=== PATIENT | female | born 1985 | race Caucasian/White ===

== ENCOUNTER 2019-02-11 22:33 | Inpatient (IN) ==
--- NOTE | 2019-02-11 23:11 | Obstetrical Progress Note ---
Date of Service 35 weeks gestational age patient is currently being assessed for UTI was seen in the office today and how was reported increased pain and presented to the hosp [facility] she is having some uterine irritability states her fetus is active there is no leakage of fluid or bleeding she describes more of a generalized abdominal discomfort February 11, 2019 Assessment & Plan (1) Abdominal pain in , antepartum: We will observe the patient for contractions push hydration cervix is not dilating now but he does have a past history of labors we will watch her (2) Abdominal pain in , antepartum: Physical Exam Physical Exam: heart rate tracing is reactive she is having occasional contractions cervix is closed 50% Results & Data Vital Signs (Past 12 Hours) Vital Signs Temp Pulse Resp BP 02/11/19 23:04 80 105/60 02/11/19 22:38 36.4 C L 96 H 18 98/55 L
[2019-02-11] MEDS ORDERED: LACTATED RINGER'S 1,000 ML IV ONE (23:12)
[2019-02-12] MEDS ORDERED: CEFAZOLIN 1000MG 1,000 MG/7.5 ML SYR IV SCH
[2019-02-12 00:19] LABS: Appearance Urine Turbid (Clear); Bacteria Urine Automated 2+ (Negative); Bilirubin Urine Negative (Negative); Blood Urine 3+ (Negative); Color Urine Yellow; Epithelial Cell Urine Auto >30 /lpf (0-5); Glucose Urine UA Negative (Negative); Ketones Urine Negative (Negative); Leukocyte Esterase Urine 3+ (Negative); Nitrite Urine Positive (Negative); Protein Urine 3+ (Negative); Urobilinogen Urine Negative (Negative); WBC Urine Automated >30 /hpf (0-5); pH Urine 6.5 (4.5-7.5)
[2019-02-12] MEDS ORDERED: BUTORPHANOL TARTRATE 2 MG/ML VIAL IV PRN (00:23)
[2019-02-12] MEDS: LACTATED RINGER'S 1,000 ML IV SCH ×3 (00:31→12:58)
[2019-02-12] MEDS ORDERED: CEFAZOLIN 1000MG 1,000 MG/7.5 ML SYR IV PRN (00:44)
[2019-02-12] MEDS ORDERED: OXYTOCIN 30 UNITS/500 ML BAG IV PRN (00:44)
[2019-02-12] MEDS ORDERED: LACTATED RINGER'S 1,000 ML IV PRN (00:44)
--- NOTE | 2019-02-12 00:50 | History & Physical Report ---
Date of Service February 12, 2019 Patient had been monitored with a closed cervix for discomfort the pains have increased check she is now 4 cm and 90% think she is entering into labor. We did not have a group B strep status but she has been started on Ancef due to a possible urinary tract infection her is complicated by the fact she is been on her just on injections for prior at 32 weeks Assessment & Plan (1) labor: Admission I have offered the patient epidural we will continue Ancef 5 increase the dose for GBS prophylactics pediatrics has been called and they are aware (2) labor: History of Present Illness Primary Care Provider: NO PCP Allergies Allergy/AdvReac Type Severity Reaction Status Date / Time No Known Drug Allergies Allergy Verified 02/11/19 15:26 Home Medications Home Medications Medication Instructions Recorded Confirmed Type buprenorphine HCl 8 mg SUBLINGUAL DAILY 02/11/19 02/11/19 History hydroxyprogest(PF)(preg presv) 275 mg SUBCUT WK 02/11/19 02/11/19 History [[place] (PF)] vit no.[id number] 1 tab PO DAILY 02/11/19 02/11/19 History [ Vitamin] Patient History Surgical History History of appendectomy Social History marital status: Single Feels Safe at Home: Yes Safety Concerns: Feels Safe At This Time Smoking Status: Current every day smoker Tobacco Type: cigarettes Cigarettes Per Day: 20 Hx Alcohol Use: No Hx Substance Use: No Physical Exam Constitutional: WD/WN, vitals as above Genitourinary: Manual OB Exam: + cervical dilation 4 cm Results & Data Vital Signs (Past 12 Hours) Vital Signs Temp Pulse Resp BP 02/11/19 23:04 36.9 C 80 18 105/60 02/11/19 22:38 36.4 C L 96 H 18 98/55 L
--- NOTE | 2019-02-12 00:52 | Obstetrical Progress Note ---
Date of Service note patient also on Subutex February 12, 2019 Results & Data Vital Signs (Past 12 Hours) Vital Signs Temp Pulse Resp BP 02/11/19 23:04 36.9 C 80 18 105/60 02/11/19 22:38 36.4 C L 96 H 18 98/55 L
[2019-02-12] MEDS ORDERED: CEFAZOLIN 1000MG 1,000 MG/7.5 ML SYR IV ONE (01:00)
[2019-02-12 01:09] LABS: Hematocrit (blood only) 34.2 % (37-47); Hemoglobin 11.5 g/dL (12.0-16.0); Mean Corpuscular Volume 88.1 fL (80-100); Mean Platelet Volume 11.3 fL (7.4-10.4); Platelet Count 412 K/uL (130-400); RDW Standard Deviation 44.8 fL (36.4-46.3); Red Blood Count 3.88 M/uL (4.2-5.4); White Blood Count 18.36 K/uL (4.8-10.8)
[2019-02-12 01:11] LABS: Mean Corpuscular Hgb Conc 33.6 g/dL (32-36)
--- NOTE | 2019-02-12 01:20 | Anesthesiology Consultation ---
Date of Service February 12, 2019 Assessment & Plan (1) Encounter for pre-operative examination: Chart Review Chart Review: Patient NOT seen in Pre Admission Testing and Acceptable Risk for Labor Epidural Consults Requested none ASA ASA3 Proposed Anesthesia Anesthesia Type: Labor Epidural Risk / Benefits Reviewed With: PT / POA / Parent / Guardian, Accepts Plan and Informed Consent Obtained History Height/Weight Height: 5 ft 5.5 in Weight: 65.317 kg Allergies Allergy/AdvReac Type Severity Reaction Status Date / Time No Known Drug Allergies Allergy Verified 02/11/19 15:26 Medications Home Medications Medication Instructions Recorded Confirmed Last Taken buprenorphine HCl 8 mg SUBLINGUAL DAILY 02/11/19 02/11/19 02/11/19 hydroxyprogest(PF)(preg presv) 275 mg SUBCUT WK 02/11/19 02/11/19 02/09/19 [[place] (PF)] vit no.[id number] 1 tab PO DAILY 02/11/19 02/11/19 02/11/19 [ Vitamin] Active Medications Generic Name Dose Route Start Last Admin Trade Name Rowdyq PRN Reason Stop Dose Admin Lactated Ringer's 1,000 mls @ 125 mls/hr 02/11/19 23:15 02/12/19 01:37 Lr IV 03/13/19 23:14 999 mls/hr .Q8H SUSIE Titration NPO Date Last Intake of Fluids: 02/12/19 Time Last Intake of Fluids: 01:16 Date Last Intake of Solids: 02/11/19 Time Last Intake of Solids: 16:00 Exercise / Class Metabolic Activity II 4-5 Yardwork/Stairs/Walk up hill Past Surgical History Surgical History History of appendectomy Past Anesthesia History No Hx of Anesthesia Complications History of PONV No Hx of PONV and No Hx of Motion Sickness Social History Smoking Status: Current every day smoker tobacco type: cigarettes Smoking cigarettes per day: 20 Hx Alcohol Use: No Hx Substance Use: No Substance Use Type Other:: subutex 8mg PO daily Review of Systems Patient denies history of abnormal bleeding or bleeding disorder. Patient denies active use of anticoagulants other than low dose aspirin. Patient denies numbness, tingling or weakness in lower extremities. Patient denies active symptoms of GERD. Physical Exam Vital Signs Last Vital Signs Temp 36.9 C 02/11/19 23:04 Pulse 100 H 02/12/19 01:11 Resp 18 02/11/19 23:04 BP 98/76 L 02/12/19 01:11 Constitutional not obese (Gravid uterus) ENMT Mouth: + dentures and + edentulous; no TMJ abnormality and oral opening not small Thyromental Distance: > or= 3.5 Finger Breadths Mallampati Class: II Neck normal visual inspection; neck extension not limited Respiratory normal respiratory effort Auscultation: lungs clear to auscultation bilaterally Cardiovascular Rate/Rhythm: regular rate and regular rhythm Heart Sounds: no murmur Neurologic moves all extremities Motor/Sensory: no sensory deficit Psychiatric Orientation: alert and oriented x 3 Testing Laboratory Results 02/12/19 01:02 Urine Color Yellow 02/11/19 23:15 Urine Appearance Turbid (Clear) A 02/11/19 23:15 Urine pH 6.5 (4.5-7.5) 02/11/19 23:15 Ur Specific [place] 1.010 (1.000-1.030) 02/11/19 23:15 Urine Protein 3+ (Negative) H 02/11/19 23:15 Urine Glucose (UA) Negative (Negative) 02/11/19 23:15 Urine Ketones Negative (Negative) 02/11/19 23:15 Urine Nitrite Positive (Negative) A 02/11/19 23:15 Ur Leukocyte Esterase 3+ (Negative) H 02/11/19 23:15 Urine WBC (Auto) >30 /hpf (0-5) H 02/11/19 23:15 Urine RBC (Auto) 10-30 /hpf (0-4) H 02/11/19 23:15 U Hyaline Cast (Auto) 1-5 /lpf (0-5) 02/11/19 23:15 U Epithel Cells (Auto) >30 /lpf (0-5) H 02/11/19 23:15 Urine Bacteria (Auto) 2+ (Negative) H 02/11/19 23:15
[2019-02-12] MEDS ORDERED: ePHEDrine sulfate 50 MG/ML AMP ONE (01:29)
[2019-02-12] MEDS ORDERED: BUPIVACAINE 0.25% 30 ML VIAL ONE (01:29)
[2019-02-12] MEDS ORDERED: fentaNYL citrate 100 MCG/2 ML VIAL ONE (01:30)
[2019-02-12] MEDS ORDERED: fentaNYL 2MCG/ML ROPIV 1.25MG/ML 100 ML BAG EPI ONE (01:30)
[2019-02-12] MEDS ORDERED: ONDANSETRON INJ 2 MG/ML 2 ML VIAL IV PRN (02:09)
[2019-02-12] MEDS ORDERED: fentaNYL 2MCG/ML ROPIV 1.25MG/ML 100 ML BAG EPI PRN (02:09)
[2019-02-12] MEDS ORDERED: ePHEDrine sulfate 50 MG/ML AMP IV PRN (02:09)
[2019-02-12] MEDS ORDERED: NALOXONE HCL 1 MG in SODIUM CHLORIDE 0.9% 1000ML 1,000 ML IV PRN (02:09)
[2019-02-12] MEDS ORDERED: DiphenhydrAMINE HCL 50 MG/ML VIAL IV PRN (02:09)
[2019-02-12] MEDS ORDERED: NALBUPHINE HCL INJ 10 MG/ML AMP IV PRN (02:09)
[2019-02-12] MEDS ORDERED: NALOXONE HCL 0.4 MG/1 ML VIAL/CARP IV PRN (02:09)
--- NOTE | 2019-02-12 07:56 | Obstetrical Progress Note ---
Date of Service patient requested epidural and now sleeping. cervix has changed to 4-5 cm. contractions irregular February 12, 2019 Assessment & Plan (1) labor: continue to follow. she has made a change. i would not augment labor at this stage as . will order subutex Physical Exam Genitourinary: Manual OB Exam: + cervical dilation 4 cm Results & Data Vital Signs (Past 12 Hours) Vital Signs Temp Pulse Resp BP Pulse Ox 02/12/19 07:49 84 98 02/12/19 07:44 85 96 02/12/19 07:39 87 97 02/12/19 07:38 79 90/54 L 02/12/19 07:34 85 96 02/12/19 07:29 85 96 02/12/19 07:24 86 91/50 L 96 02/12/19 07:19 83 97 02/12/19 07:15 37.0 C 20 02/12/19 07:14 102 H 98 02/12/19 07:09 83 94/55 L 96 02/12/19 07:04 82 96 02/12/19 06:59 87 97 02/12/19 06:55 81 90/50 L 02/12/19 06:54 86 97 02/12/19 06:49 87 96 02/12/19 06:44 85 97 02/12/19 06:39 99 H 96/54 L 98 02/12/19 06:34 113 H 98 02/12/19 06:29 83 96 02/12/19 06:24 96 H 88/50 L 97 02/12/19 06:19 87 97 02/12/19 06:14 88 97 02/12/19 06:09 88 90/52 L 97 02/12/19 06:04 84 97 02/12/19 05:59 84 97 02/12/19 05:54 84 89/53 L 97 02/12/19 05:49 81 97 02/12/19 05:44 103 H 98 02/12/19 05:39 89 92/55 L 97 02/12/19 05:34 89 96 02/12/19 05:29 89 97 02/12/19 05:24 88 98 02/12/19 05:23 85 95/55 L 02/12/19 05:19 87 98 02/12/19 05:14 86 97 02/12/19 05:11 93 H 101/55 L 02/12/19 05:10 37.1 C 18 02/12/19 05:09 91 H 107/58 L 98 02/12/19 05:04 78 98 02/12/19 04:59 93 H 98 02/12/19 04:54 82 97/52 L 97 02/12/19 04:49 81 97 02/12/19 04:44 82 97 02/12/19 04:39 79 94/53 L 97 02/12/19 04:34 81 97 02/12/19 04:29 82 97 02/12/19 04:24 97 H 92/53 L 99 02/12/19 04:19 84 97 02/12/19 04:14 88 96 02/12/19 04:10 88 16 88/53 L 02/12/19 04:09 87 97 02/12/19 04:04 90 96 02/12/19 03:59 88 96 02/12/19 03:54 89 96 02/12/19 03:53 86 92/53 L 02/12/19 03:49 93 H 95 02/12/19 03:44 92 H 96 02/12/19 03:39 90 94/50 L 96 02/12/19 03:34 87 96 02/12/19 03:32 82 97/52 L 02/12/19 03:29 87 97 02/12/19 03:24 83 83/49 L 97 02/12/19 03:19 85 97 02/12/19 03:14 88 97 02/12/19 03:09 84 86/48 L 97 02/12/19 03:04 87 97 02/12/19 02:59 87 97 02/12/19 02:54 86 97 02/12/19 02:53 81 87/51 L 02/12/19 02:49 87 92/51 L 97 02/12/19 02:47 91 H 89/52 L 02/12/19 02:45 93 H 90/51 L 02/12/19 02:44 102 H 98 02/12/19 02:43 93 H 87/50 L 02/12/19 02:41 96 H 88/51 L 02/12/19 02:39 93 H 92/53 L 97 02/12/19 02:37 91 H 91/53 L 02/12/19 02:35 96 H 89/53 L 02/12/19 02:34 95 H 96 02/12/19 02:33 96 H 90/55 L 02/12/19 02:31 90 91/52 L 02/12/19 02:29 90 89/51 L 97 02/12/19 02:27 96 H 99/54 L 02/12/19 02:25 99 H 100/54 L 02/12/19 02:24 90 97 02/12/19 02:23 93 H 92/50 L 02/12/19 02:21 96 H 92/53 L 02/12/19 02:19 103 H 98/55 L 98 02/12/19 02:17 90 98/53 L 02/12/19 02:15 98 H 97/55 L 02/12/19 02:14 98 H 98 02/12/19 02:13 104 H 94/52 L 02/12/19 02:11 90 97/55 L 02/12/19 02:09 98 H 97/54 L 99 02/12/19 02:07 90 96/50 L 02/12/19 02:05 99 H 96/51 L 02/12/19 02:04 94 H 99 02/12/19 02:03 96 H 103/52 L 02/12/19 02:01 90 18 101/52 L 02/12/19 01:59 98 H 95/48 L 99 02/12/19 01:57 90 100/59 L 02/12/19 01:55 89 94/50 L 02/12/19 01:54 83 100 02/12/19 01:53 78 104/55 L 02/12/19 01:50 85 87/45 L 02/12/19 01:49 90 85/47 L 98 02/12/19 01:48 83 102/44 L 02/12/19 01:45 103 H 101/55 L 02/12/19 01:44 94 H 97 02/12/19 01:43 83 110/59 L 02/12/19 01:41 94 H 99/49 L 02/12/19 01:40 104 H 120/57 L 02/12/19 01:39 105 H 97 02/12/19 01:37 99 H 98/56 L 02/12/19 01:35 108 H 97/60 L 02/12/19 01:34 101 H 97 02/12/19 01:29 113 H 99 02/12/19 01:24 108 H 98 02/12/19 01:11 36.8 C 100 H 18 98/76 L 02/11/19 23:04 36.9 C 80 18 105/60 02/11/19 22:38 36.4 C L 96 H 18 98/55 L
[2019-02-12] MEDS: BETAMETH SOD PHOS/ACETATE IA 6 MG/ML IM SCH (08:47)
[2019-02-12] MEDS ORDERED: BUPRENORPHINE HCL 8 MG SUBL SL SCH (09:00)
--- NOTE | 2019-02-12 13:12 | Obstetrical Progress Note ---
Date of Service February 12, 2019 Subjective I took over care of patient this morning. She is resting in bed with epidural and is comfortable. She rec'd steroids this morning when it was determined that she made cervical change, from closed cervix to 4cm dilated. Recheck now was 4/80/-2. This is similar to Dr Young's check this morning. FHT Category 1. [place] shows irregular ctx. I discussed with patient that, given her cervical change overnight, I recommend that we continue monitoring. Will plan to give next dose of steroids in the morning when due. At this time, she has not made cervical change in the past 6 hours, but will plan to continue to monitor. Results & Data Vital Signs (Past 12 Hours) Vital Signs Temp Pulse Resp BP Pulse Ox 02/12/19 13:04 93 H 98 02/12/19 12:59 85 97 02/12/19 12:54 109 H 96/52 L 98 02/12/19 12:49 93 H 98 02/12/19 12:44 91 H 98 02/12/19 12:39 93 H 97/54 L 98 02/12/19 12:34 102 H 98 02/12/19 12:29 83 98 02/12/19 12:24 89 98/55 L 98 02/12/19 12:19 94 H 97 02/12/19 12:14 89 98 02/12/19 12:09 97 H 91/52 L 98 02/12/19 12:04 95 H 98 02/12/19 11:59 105 H 98 02/12/19 11:55 103 H 100/55 L 02/12/19 11:54 102 H 98 02/12/19 11:49 99 H 98 02/12/19 11:44 102 H 98 02/12/19 11:40 103 H 104/58 L 02/12/19 11:39 94 H 99 02/12/19 11:34 91 H 98 02/12/19 11:29 79 97 02/12/19 11:24 87 86/51 L 98 02/12/19 11:19 86 97 02/12/19 11:14 85 97 02/12/19 11:09 96 H 97 02/12/19 11:08 95 H 94/56 L 02/12/19 11:04 92 H 97 02/12/19 10:59 96 H 98 02/12/19 10:54 94 H 88/53 L 98 02/12/19 10:49 97 H 98 02/12/19 10:44 105 H 98 02/12/19 10:39 98 H 99/53 L 98 02/12/19 10:34 91 H 98 02/12/19 10:29 96 H 98 02/12/19 10:24 95 H 110/57 L 98 02/12/19 10:19 102 H 98 02/12/19 10:14 87 97 02/12/19 10:09 90 97/54 L 98 02/12/19 10:04 104 H 98 02/12/19 09:59 91 H 97 02/12/19 09:54 93 H 99/55 L 98 02/12/19 09:49 98 H 97 02/12/19 09:44 93 H 98 02/12/19 09:39 102 H 106/61 99 02/12/19 09:34 97 H 98 02/12/19 09:29 93 H 97 02/12/19 09:24 83 99 02/12/19 09:23 83 103/60 02/12/19 09:19 97 H 99 02/12/19 09:14 102 H 99 02/12/19 09:09 89 97/60 L 98 02/12/19 09:04 87 99 02/12/19 08:59 77 98 02/12/19 08:54 89 98/57 L 98 02/12/19 08:49 84 98 02/12/19 08:44 86 97 02/12/19 08:39 82 97/57 L 97 02/12/19 08:34 83 97 02/12/19 08:29 89 97 02/12/19 08:24 82 96/54 L 98 02/12/19 08:19 84 97 02/12/19 08:14 83 97 02/12/19 08:10 81 97/55 L 02/12/19 08:09 83 97 02/12/19 08:04 84 97 02/12/19 07:59 86 97 02/12/19 07:54 83 97 02/12/19 07:53 82 97/54 L 02/12/19 07:49 84 98 02/12/19 07:44 85 96 02/12/19 07:39 87 97 02/12/19 07:38 79 90/54 L 02/12/19 07:34 85 96 02/12/19 07:29 85 96 02/12/19 07:24 86 91/50 L 96 02/12/19 07:19 83 97 02/12/19 07:15 37.0 C 20 02/12/19 07:14 102 H 98 02/12/19 07:09 83 94/55 L 96 02/12/19 07:04 82 96 02/12/19 06:59 87 97 02/12/19 06:55 81 90/50 L 02/12/19 06:54 86 97 02/12/19 06:49 87 96 02/12/19 06:44 85 97 02/12/19 06:39 99 H 96/54 L 98 02/12/19 06:34 113 H 98 02/12/19 06:29 83 96 02/12/19 06:24 96 H 88/50 L 97 02/12/19 06:19 87 97 02/12/19 06:14 88 97 02/12/19 06:09 88 90/52 L 97 02/12/19 06:04 84 97 02/12/19 05:59 84 97 02/12/19 05:54 84 89/53 L 97 02/12/19 05:49 81 97 02/12/19 05:44 103 H 98 02/12/19 05:39 89 92/55 L 97 02/12/19 05:34 89 96 02/12/19 05:29 89 97 02/12/19 05:24 88 98 02/12/19 05:23 85 95/55 L 02/12/19 05:19 87 98 02/12/19 05:14 86 97 02/12/19 05:11 93 H 101/55 L 02/12/19 05:10 37.1 C 18 02/12/19 05:09 91 H 107/58 L 98 02/12/19 05:04 78 98 02/12/19 04:59 93 H 98 02/12/19 04:54 82 97/52 L 97 02/12/19 04:49 81 97 02/12/19 04:44 82 97 02/12/19 04:39 79 94/53 L 97 02/12/19 04:34 81 97 02/12/19 04:29 82 97 02/12/19 04:24 97 H 92/53 L 99 02/12/19 04:19 84 97 02/12/19 04:14 88 96 02/12/19 04:10 88 16 88/53 L 02/12/19 04:09 87 97 02/12/19 04:04 90 96 02/12/19 03:59 88 96 02/12/19 03:54 89 96 02/12/19 03:53 86 92/53 L 02/12/19 03:49 93 H 95 02/12/19 03:44 92 H 96 02/12/19 03:39 90 94/50 L 96 02/12/19 03:34 87 96 02/12/19 03:32 82 97/52 L 02/12/19 03:29 87 97 02/12/19 03:24 83 83/49 L 97 02/12/19 03:19 85 97 02/12/19 03:14 88 97 02/12/19 03:09 84 86/48 L 97 02/12/19 03:04 87 97 02/12/19 02:59 87 97 02/12/19 02:54 86 97 02/12/19 02:53 81 87/51 L 02/12/19 02:49 87 92/51 L 97 02/12/19 02:47 91 H 89/52 L 02/12/19 02:45 93 H 90/51 L 02/12/19 02:44 102 H 98 02/12/19 02:43 93 H 87/50 L 02/12/19 02:41 96 H 88/51 L 02/12/19 02:39 93 H 92/53 L 97 02/12/19 02:37 91 H 91/53 L 02/12/19 02:35 96 H 89/53 L 02/12/19 02:34 95 H 96 02/12/19 02:33 96 H 90/55 L 02/12/19 02:31 90 91/52 L 02/12/19 02:29 90 89/51 L 97 02/12/19 02:27 96 H 99/54 L 02/12/19 02:25 99 H 100/54 L 02/12/19 02:24 90 97 02/12/19 02:23 93 H 92/50 L 02/12/19 02:21 96 H 92/53 L 02/12/19 02:19 103 H 98/55 L 98 02/12/19 02:17 90 98/53 L 02/12/19 02:15 98 H 97/55 L 02/12/19 02:14 98 H 98 02/12/19 02:13 104 H 94/52 L 02/12/19 02:11 90 97/55 L 02/12/19 02:09 98 H 97/54 L 99 02/12/19 02:07 90 96/50 L 02/12/19 02:05 99 H 96/51 L 02/12/19 02:04 94 H 99 02/12/19 02:03 96 H 103/52 L 02/12/19 02:01 90 18 101/52 L 02/12/19 01:59 98 H 95/48 L 99 02/12/19 01:57 90 100/59 L 02/12/19 01:55 89 94/50 L 02/12/19 01:54 83 100 02/12/19 01:53 78 104/55 L 02/12/19 01:50 85 87/45 L 02/12/19 01:49 90 85/47 L 98 02/12/19 01:48 83 102/44 L 02/12/19 01:45 103 H 101/55 L 02/12/19 01:44 94 H 97 02/12/19 01:43 83 110/59 L 02/12/19 01:41 94 H 99/49 L 02/12/19 01:40 104 H 120/57 L 02/12/19 01:39 105 H 97 02/12/19 01:37 99 H 98/56 L 02/12/19 01:35 108 H 97/60 L 02/12/19 01:34 101 H 97 02/12/19 01:29 113 H 99 02/12/19 01:24 108 H 98 02/12/19 01:11 36.8 C 100 H 18 98/76 L
[2019-02-12] MEDS ORDERED: NICOTINE 14 MG/24 HR PATCH TD SCH ×2 (15:00→23:40)
[2019-02-12] MEDS: CEFAZOLIN 1000MG 1,000 MG/7.5 ML SYR IV SCH (16:59)
--- NOTE | 2019-02-12 20:07 | Obstetrical Progress Note ---
Date of Service February 12, 2019 Subjective Patient is feeling well. Not feeling any contractions. FHT Cat 1 [place] irregular ctx - approx 1 every 30 minutes. Cervix same - /-2. We discussed that she has made no cervical change since early this morning. Her contractions have significantly slowed. Given her history of 32w delivery, she is understandably concerned. I gave her the option of being discharged to home tonight, given that she is not in labor. Also, since she lives 45 minutes away, I offered that we could monitor intermittently overnight and check her cervix again in the morning. She will need to get her 2nd dose of [place] tomorrow morning - either given here if she stays, or will need to come back to the hospital to get it in the morning if she chooses to go home. I suspect that her contractions have slowed because of IV hydration and antibiotic treatment of her UTI. If this was labor, she would have continued binh and would have made cervical change throughout the day. Results & Data Vital Signs (Past 12 Hours) Vital Signs Temp Pulse Resp BP Pulse Ox 02/12/19 19:57 96 H 93 02/12/19 19:54 84 100/60 98 02/12/19 19:49 89 98 02/12/19 19:44 82 97 02/12/19 19:39 78 97/56 L 97 02/12/19 19:34 76 97 02/12/19 19:29 80 97 02/12/19 19:24 77 94/52 L 97 02/12/19 19:19 81 97 02/12/19 19:14 86 98 02/12/19 19:09 81 96/61 L 98 02/12/19 19:08 36.4 C L 18 02/12/19 19:04 90 97 02/12/19 18:59 89 98 02/12/19 18:54 73 95/54 L 97 02/12/19 18:49 77 97 02/12/19 18:44 78 98 02/12/19 18:39 81 100/57 L 98 02/12/19 18:34 76 98 02/12/19 18:29 74 98 02/12/19 18:24 78 98/55 L 98 02/12/19 18:19 78 98 02/12/19 18:14 77 98 02/12/19 18:09 80 100/59 L 99 02/12/19 18:04 80 98 02/12/19 17:59 79 97 02/12/19 17:54 78 96/53 L 97 02/12/19 17:49 93 H 97 02/12/19 17:44 83 98 02/12/19 17:40 78 96/57 L 02/12/19 17:39 88 99 02/12/19 17:34 96 H 98 02/12/19 17:29 92 H 98 02/12/19 17:24 90 88/55 L 98 02/12/19 17:19 96 H 98 02/12/19 17:14 79 97 02/12/19 17:09 83 96/51 L 97 02/12/19 17:04 79 97 02/12/19 16:59 90 97 02/12/19 16:54 84 94/51 L 97 02/12/19 16:49 78 97 02/12/19 16:44 83 97 02/12/19 16:39 84 95/53 L 98 02/12/19 16:34 84 99 02/12/19 16:29 90 99 02/12/19 16:24 81 97/53 L 98 02/12/19 16:19 79 99 02/12/19 16:14 81 98 02/12/19 16:09 83 99/53 L 98 02/12/19 16:04 85 98 02/12/19 15:59 82 98 02/12/19 15:54 85 103/58 L 99 02/12/19 15:49 89 100 02/12/19 15:44 83 98 02/12/19 15:39 75 98/53 L 99 02/12/19 15:34 80 99 02/12/19 15:29 89 99 02/12/19 15:24 85 97/52 L 99 02/12/19 15:19 87 98 02/12/19 15:14 94 H 98 02/12/19 15:10 88 97/52 L 02/12/19 15:09 91 H 98 02/12/19 15:04 95 H 98 02/12/19 14:59 92 H 97 02/12/19 14:54 86 97/59 L 98 02/12/19 14:49 87 97 02/12/19 14:44 90 98 02/12/19 14:40 84 93/53 L 02/12/19 14:39 83 98 02/12/19 14:34 90 98 02/12/19 14:29 85 97 02/12/19 14:24 99 H 98 02/12/19 14:23 85 96/58 L 02/12/19 14:19 85 98 02/12/19 14:14 86 97 02/12/19 14:09 79 96/56 L 97 02/12/19 14:04 86 97 02/12/19 13:59 91 H 97 02/12/19 13:54 89 93/51 L 97 02/12/19 13:49 85 98 02/12/19 13:44 98 H 97 02/12/19 13:39 84 94/55 L 97 02/12/19 13:34 88 98 02/12/19 13:29 85 97 02/12/19 13:24 91 H 95/55 L 98 02/12/19 13:19 99 H 98 02/12/19 13:14 98 H 98 02/12/19 13:09 93 H 95/50 L 97 02/12/19 13:04 93 H 98 02/12/19 12:59 85 97 02/12/19 12:54 109 H 96/52 L 98 02/12/19 12:49 93 H 98 02/12/19 12:44 91 H 98 02/12/19 12:39 93 H 97/54 L 98 02/12/19 12:34 102 H 98 02/12/19 12:29 83 98 02/12/19 12:24 89 98/55 L 98 02/12/19 12:19 94 H 97 02/12/19 12:14 89 98 02/12/19 12:09 97 H 91/52 L 98 02/12/19 12:04 95 H 98 02/12/19 11:59 105 H 98 02/12/19 11:55 103 H 100/55 L 02/12/19 11:54 102 H 98 02/12/19 11:49 99 H 98 02/12/19 11:44 102 H 98 02/12/19 11:40 103 H 104/58 L 02/12/19 11:39 94 H 99 02/12/19 11:34 91 H 98 02/12/19 11:29 79 97 02/12/19 11:24 87 86/51 L 98 02/12/19 11:19 86 97 02/12/19 11:14 85 97 02/12/19 11:09 96 H 97 02/12/19 11:08 95 H 94/56 L 02/12/19 11:04 92 H 97 02/12/19 10:59 96 H 98 02/12/19 10:54 94 H 88/53 L 98 02/12/19 10:49 97 H 98 02/12/19 10:44 105 H 98 02/12/19 10:39 98 H 99/53 L 98 02/12/19 10:34 91 H 98 02/12/19 10:29 96 H 98 02/12/19 10:24 95 H 110/57 L 98 02/12/19 10:19 102 H 98 02/12/19 10:14 87 97 02/12/19 10:09 90 97/54 L 98 02/12/19 10:04 104 H 98 02/12/19 09:59 91 H 97 02/12/19 09:54 93 H 99/55 L 98 02/12/19 09:49 98 H 97 02/12/19 09:44 93 H 98 02/12/19 09:39 102 H 106/61 99 02/12/19 09:34 97 H 98 02/12/19 09:29 93 H 97 02/12/19 09:24 83 99 02/12/19 09:23 83 103/60 02/12/19 09:19 97 H 99 02/12/19 09:14 102 H 99 02/12/19 09:09 89 97/60 L 98 02/12/19 09:04 87 99 02/12/19 08:59 77 98 02/12/19 08:54 89 98/57 L 98 02/12/19 08:49 84 98 02/12/19 08:44 86 97 02/12/19 08:39 82 97/57 L 97 02/12/19 08:34 83 97 02/12/19 08:29 89 97 02/12/19 08:24 82 96/54 L 98 02/12/19 08:19 84 97 02/12/19 08:14 83 97 02/12/19 08:10 81 97/55 L 02/12/19 08:09 83 97 02/12/19 08:04 84 97
--- NOTE | 2019-02-12 22:14 | Obstetrical Progress Note ---
Date of Service February 12, 2019 Subjective Patient's epidural infusion has been discontinued, she is feeling well and not feeling contractions. She voices that she would like to go home. I discussed with her the signs/symptoms of labor, and that if she develops any worsening contractions, vaginal bleeding, leaking of fluid, or if baby is not moving, she should return to the hospital immediately. We discussed that there is a possibility that she could progress quickly given that this is her second p regnancy and her history of a delivery in her last , but she would like to go home in spite of this. I offered her an alternative of staying the night, but she would like to be discharged. Since she is not binh and has not made cervical change all day, I think this is a reasonable plan. Will discharge to home, she is to return for 2nd dose of [place] tomorrow morning at 0847am. She also has a followup visit in the office this week. FHT Cat 1, reactive. [place]: no contractions. Results & Data Vital Signs (Past 12 Hours) Vital Signs Temp Pulse Resp BP Pulse Ox 02/12/19 20:54 83 98/53 L 02/12/19 20:39 81 96/52 L 02/12/19 20:24 81 94/55 L 02/12/19 20:09 85 97/57 L 02/12/19 19:57 96 H 93 02/12/19 19:54 84 100/60 98 02/12/19 19:49 89 98 02/12/19 19:44 82 97 02/12/19 19:39 78 97/56 L 97 02/12/19 19:34 76 97 02/12/19 19:29 80 97 02/12/19 19:24 77 94/52 L 97 02/12/19 19:19 81 97 02/12/19 19:14 86 98 02/12/19 19:09 81 96/61 L 98 02/12/19 19:08 36.4 C L 18 02/12/19 19:04 90 97 02/12/19 18:59 89 98 02/12/19 18:54 73 95/54 L 97 02/12/19 18:49 77 97 02/12/19 18:44 78 98 02/12/19 18:39 81 100/57 L 98 02/12/19 18:34 76 98 02/12/19 18:29 74 98 02/12/19 18:24 78 98/55 L 98 02/12/19 18:19 78 98 02/12/19 18:14 77 98 02/12/19 18:09 80 100/59 L 99 02/12/19 18:04 80 98 02/12/19 17:59 79 97 02/12/19 17:54 78 96/53 L 97 02/12/19 17:49 93 H 97 02/12/19 17:44 83 98 02/12/19 17:40 78 96/57 L 02/12/19 17:39 88 99 02/12/19 17:34 96 H 98 02/12/19 17:29 92 H 98 02/12/19 17:24 90 88/55 L 98 02/12/19 17:19 96 H 98 02/12/19 17:14 79 97 02/12/19 17:09 83 96/51 L 97 02/12/19 17:04 79 97 02/12/19 16:59 90 97 02/12/19 16:54 84 94/51 L 97 02/12/19 16:49 78 97 02/12/19 16:44 83 97 02/12/19 16:39 84 95/53 L 98 02/12/19 16:34 84 99 02/12/19 16:29 90 99 02/12/19 16:24 81 97/53 L 98 02/12/19 16:19 79 99 02/12/19 16:14 81 98 02/12/19 16:09 83 99/53 L 98 02/12/19 16:04 85 98 02/12/19 15:59 82 98 02/12/19 15:54 85 103/58 L 99 02/12/19 15:49 89 100 02/12/19 15:44 83 98 02/12/19 15:39 75 98/53 L 99 02/12/19 15:34 80 99 02/12/19 15:29 89 99 02/12/19 15:24 85 97/52 L 99 02/12/19 15:19 87 98 02/12/19 15:14 94 H 98 02/12/19 15:10 88 97/52 L 02/12/19 15:09 91 H 98 02/12/19 15:04 95 H 98 02/12/19 14:59 92 H 97 02/12/19 14:54 86 97/59 L 98 02/12/19 14:49 87 97 02/12/19 14:44 90 98 02/12/19 14:40 84 93/53 L 02/12/19 14:39 83 98 02/12/19 14:34 90 98 02/12/19 14:29 85 97 02/12/19 14:24 99 H 98 02/12/19 14:23 85 96/58 L 02/12/19 14:19 85 98 02/12/19 14:14 86 97 02/12/19 14:09 79 96/56 L 97 02/12/19 14:04 86 97 02/12/19 13:59 91 H 97 02/12/19 13:54 89 93/51 L 97 02/12/19 13:49 85 98 02/12/19 13:44 98 H 97 02/12/19 13:39 84 94/55 L 97 02/12/19 13:34 88 98 02/12/19 13:29 85 97 02/12/19 13:24 91 H 95/55 L 98 02/12/19 13:19 99 H 98 02/12/19 13:14 98 H 98 02/12/19 13:09 93 H 95/50 L 97 02/12/19 13:04 93 H 98 02/12/19 12:59 85 97 02/12/19 12:54 109 H 96/52 L 98 02/12/19 12:49 93 H 98 02/12/19 12:44 91 H 98 02/12/19 12:39 93 H 97/54 L 98 02/12/19 12:34 102 H 98 02/12/19 12:29 83 98 02/12/19 12:24 89 98/55 L 98 02/12/19 12:19 94 H 97 02/12/19 12:14 89 98 02/12/19 12:09 97 H 91/52 L 98 02/12/19 12:04 95 H 98 02/12/19 11:59 105 H 98 02/12/19 11:55 103 H 100/55 L 02/12/19 11:54 102 H 98 02/12/19 11:49 99 H 98 02/12/19 11:44 102 H 98 07/27/19 11:40 103 H 104/58 L 02/12/19 11:39 94 H 99 02/12/19 11:34 91 H 98 02/12/19 11:29 79 97 02/12/19 11:24 87 86/51 L 98 02/12/19 11:19 86 97 02/12/19 11:14 85 97 02/12/19 11:09 96 H 97 02/12/19 11:08 95 H 94/56 L 02/12/19 11:04 92 H 97 02/12/19 10:59 96 H 98 02/12/19 10:54 94 H 88/53 L 98 02/12/19 10:49 97 H 98 02/12/19 10:44 105 H 98 02/12/19 10:39 98 H 99/53 L 98 02/12/19 10:34 91 H 98 02/12/19 10:29 96 H 98 02/12/19 10:24 95 H 110/57 L 98 02/12/19 10:19 102 H 98 02/12/19 10:14 87 97
--- NOTE | 2019-02-12 23:18 | Anesthesia Procedure Note ---
Date of Service February 12, 2019 Anesthesia Post Epidural Note Vital Signs Vital Signs: Temp Pulse Resp BP Pulse Ox 36.4 C L 83 18 98/53 L 93 02/12/19 19:08 02/12/19 20:54 02/12/19 19:08 02/12/19 20:54 02/12/19 19:57 Notes Mental Status: alert / awake / arousable and participated in evaluation Nausea / Vomiting: adequately controlled Pain: adequately controlled Airway Patency, RR, SpO2: stable & adequate BP & HR: stable & adequate Hydration State: stable & adequate Neuraxial Anesthesia: was administered, sensory block is resolving and see Notes below Anesthetic Complications: no major complications apparent and Pt Satisfied with anesthetic care Epidural: Removed without complications and With tip intact Notes: Epidural site clean, dry and intact. No signs of edema, erythema or bruising at insertion site. Epidural has been turned off for almost 3 hours. At this time though, pt has mild left lower extremity quad weakness without loss of sensation. She does state that her left buttock still feels numb as well. The plan was to send her home this evening, but I am concerned that she could fall if sent home right now, especially if she tries to ambulate up or down stairs. I spoke with Dr. Rodriguez and recommended that at this time she spend the night here, unless her strength in her left leg significantly improves. The team can call me at any time tonight to reassess if the patient requests. Otherwise, I will reexamine her in the morning.
--- NOTE | 2019-02-12 23:39 | Obstetrical Progress Note ---
Date of Service February 12, 2019 Subjective Patient is still without contractions. Epidural was removed and patient was evaluated by anesthesia. Her left leg is still missing some sensation and feels "asleep." I discussed in person with Dr Medrano, anesthesiologist, who is recommending patient stay until all sensation has returned for patient safety. I discussed this with patient, and she is tearful but agreeable to stay. Will plan to monitor intermittently overnight, and will reevaluate cervix in the AM. Patient is aware to let us know if she develops contractions or any symptomatic changes overnight. FHT Cat 1 [place] very rare ctx Results & Data Vital Signs (Past 12 Hours) Vital Signs Temp Pulse Resp BP Pulse Ox 02/12/19 23:11 37.1 C 80 16 99/57 L 02/12/19 20:54 83 98/53 L 02/12/19 20:39 81 96/52 L 02/12/19 20:24 81 94/55 L 02/12/19 20:09 85 97/57 L 02/12/19 19:57 96 H 93 02/12/19 19:54 84 100/60 98 02/12/19 19:49 89 98 02/12/19 19:44 82 97 02/12/19 19:39 78 97/56 L 97 02/12/19 19:34 76 97 02/12/19 19:29 80 97 02/12/19 19:24 77 94/52 L 97 02/12/19 19:19 81 97 02/12/19 19:14 86 98 02/12/19 19:09 81 96/61 L 98 02/12/19 19:08 36.4 C L 18 02/12/19 19:04 90 97 02/12/19 18:59 89 98 02/12/19 18:54 73 95/54 L 97 02/12/19 18:49 77 97 02/12/19 18:44 78 98 02/12/19 18:39 81 100/57 L 98 02/12/19 18:34 76 98 02/12/19 18:29 74 98 02/12/19 18:24 78 98/55 L 98 02/12/19 18:19 78 98 02/12/19 18:14 77 98 02/12/19 18:09 80 100/59 L 99 02/12/19 18:04 80 98 02/12/19 17:59 79 97 02/12/19 17:54 78 96/53 L 97 02/12/19 17:49 93 H 97 02/12/19 17:44 83 98 02/12/19 17:40 78 96/57 L 02/12/19 17:39 88 99 02/12/19 17:34 96 H 98 02/12/19 17:29 92 H 98 02/12/19 17:24 90 88/55 L 98 02/12/19 17:19 96 H 98 02/12/19 17:14 79 97 02/12/19 17:09 83 96/51 L 97 02/12/19 17:04 79 97 02/12/19 16:59 90 97 02/12/19 16:54 84 94/51 L 97 02/12/19 16:49 78 97 02/12/19 16:44 83 97 02/12/19 16:39 84 95/53 L 98 02/12/19 16:34 84 99 02/12/19 16:29 90 99 02/12/19 16:24 81 97/53 L 98 02/12/19 16:19 79 99 02/12/19 16:14 81 98 02/12/19 16:09 83 99/53 L 98 02/12/19 16:04 85 98 02/12/19 15:59 82 98 02/12/19 15:54 85 103/58 L 99 02/12/19 15:49 89 100 02/12/19 15:44 83 98 02/12/19 15:39 75 98/53 L 99 02/12/19 15:34 80 99 02/12/19 15:29 89 99 02/12/19 15:24 85 97/52 L 99 02/12/19 15:19 87 98 02/12/19 15:14 94 H 98 02/12/19 15:10 88 97/52 L 02/12/19 15:09 91 H 98 02/12/19 15:04 95 H 98 02/12/19 14:59 92 H 97 02/12/19 14:54 86 97/59 L 98 02/12/19 14:49 87 97 02/12/19 14:44 90 98 02/12/19 14:40 84 93/53 L 02/12/19 14:39 83 98 02/12/19 14:34 90 98 02/12/19 14:29 85 97 02/12/19 14:24 99 H 98 02/12/19 14:23 85 96/58 L 02/12/19 14:19 85 98 02/12/19 14:14 86 97 02/12/19 14:09 79 96/56 L 97 02/12/19 14:04 86 97 02/12/19 13:59 91 H 97 02/12/19 13:54 89 93/51 L 97 02/12/19 13:49 85 98 02/12/19 13:44 98 H 97 02/12/19 13:39 84 94/55 L 97 02/12/19 13:34 88 98 02/12/19 13:29 85 97 02/12/19 13:24 91 H 95/55 L 98 02/12/19 13:19 99 H 98 02/12/19 13:14 98 H 98 02/12/19 13:09 93 H 95/50 L 97 02/12/19 13:04 93 H 98 02/12/19 12:59 85 97 02/12/19 12:54 109 H 96/52 L 98 02/12/19 12:49 93 H 98 02/12/19 12:44 91 H 98 02/12/19 12:39 93 H 97/54 L 98 02/12/19 12:34 102 H 98 02/12/19 12:29 83 98 02/12/19 12:24 89 98/55 L 98 02/12/19 12:19 94 H 97 02/12/19 12:14 89 98 02/12/19 12:09 97 H 91/52 L 98 02/12/19 12:04 95 H 98 02/12/19 11:59 105 H 98 02/12/19 11:55 103 H 100/55 L 02/12/19 11:54 102 H 98 02/12/19 11:49 99 H 98 02/12/19 11:44 102 H 98 02/12/19 11:40 103 H 104/58 L 02/12/19 11:39 94 H 99
[2019-02-13] MEDS: CEFAZOLIN 1000MG 1,000 MG/7.5 ML SYR IV SCH (05:26)
[2019-02-13] MEDS: LACTATED RINGER'S 1,000 ML IV SCH (05:46)
--- NOTE | 2019-02-13 07:58 | Anesthesiology Progress Note ---
Date of Service February 13, 2019 Anesthesia Post Procedure Vital Signs Vital Signs: Temp Pulse Resp BP Pulse Ox 02/13/19 07:37 36.9 C 18 02/13/19 07:36 93 H 86/53 L 02/13/19 05:10 37.0 C 98 H 18 98/55 L 02/13/19 01:08 36.7 C 75 16 97/59 L 02/12/19 23:11 37.1 C 80 16 99/57 L 02/12/19 20:54 83 98/53 L 02/12/19 20:39 81 96/52 L 02/12/19 20:24 81 94/55 L 02/12/19 20:09 85 97/57 L 02/12/19 19:57 96 H 93 02/12/19 19:54 84 100/60 98 02/12/19 19:49 89 98 02/12/19 19:44 82 97 02/12/19 19:39 78 97/56 L 97 02/12/19 19:34 76 97 02/12/19 19:29 80 97 02/12/19 19:24 77 94/52 L 97 02/12/19 19:19 81 97 02/12/19 19:14 86 98 02/12/19 19:09 81 96/61 L 98 02/12/19 19:08 36.4 C L 18 02/12/19 19:04 90 97 02/12/19 18:59 89 98 02/12/19 18:54 73 95/54 L 97 02/12/19 18:49 77 97 02/12/19 18:44 78 98 02/12/19 18:39 81 100/57 L 98 02/12/19 18:34 76 98 02/12/19 18:29 74 98 02/12/19 18:24 78 98/55 L 98 02/12/19 18:19 78 98 02/12/19 18:14 77 98 02/12/19 18:09 80 100/59 L 99 02/12/19 18:04 80 98 02/12/19 17:59 79 97 02/12/19 17:54 78 96/53 L 97 02/12/19 17:49 93 H 97 02/12/19 17:44 83 98 02/12/19 17:40 78 96/57 L 02/12/19 17:39 88 99 02/12/19 17:34 96 H 98 02/12/19 17:29 92 H 98 02/12/19 17:24 90 88/55 L 98 02/12/19 17:19 96 H 98 02/12/19 17:14 79 97 02/12/19 17:09 83 96/51 L 97 02/12/19 17:04 79 97 02/12/19 16:59 90 97 02/12/19 16:54 84 94/51 L 97 02/12/19 16:49 78 97 02/12/19 16:44 83 97 02/12/19 16:39 84 95/53 L 98 02/12/19 16:34 84 99 02/12/19 16:29 90 99 02/12/19 16:24 81 97/53 L 98 02/12/19 16:19 79 99 02/12/19 16:14 81 98 02/12/19 16:09 83 99/53 L 98 02/12/19 16:04 85 98 02/12/19 15:59 82 98 02/12/19 15:54 85 103/58 L 99 02/12/19 15:49 89 100 02/12/19 15:44 83 98 02/12/19 15:39 75 98/53 L 99 02/12/19 15:34 80 99 02/12/19 15:29 89 99 02/12/19 15:24 85 97/52 L 99 02/12/19 15:19 87 98 02/12/19 15:14 94 H 98 02/12/19 15:10 88 97/52 L 02/12/19 15:09 91 H 98 02/12/19 15:04 95 H 98 02/12/19 14:59 92 H 97 02/12/19 14:54 86 97/59 L 98 02/12/19 14:49 87 97 02/12/19 14:44 90 98 02/12/19 14:40 84 93/53 L 02/12/19 14:39 83 98 02/12/19 14:34 90 98 02/12/19 14:29 85 97 02/12/19 14:24 99 H 98 02/12/19 14:23 85 96/58 L 02/12/19 14:19 85 98 02/12/19 14:14 86 97 02/12/19 14:09 79 96/56 L 97 02/12/19 14:04 86 97 02/12/19 13:59 91 H 97 02/12/19 13:54 89 93/51 L 97 02/12/19 13:49 85 98 02/12/19 13:44 98 H 97 02/12/19 13:39 84 94/55 L 97 02/12/19 13:34 88 98 02/12/19 13:29 85 97 02/12/19 13:24 91 H 95/55 L 98 02/12/19 13:19 99 H 98 02/12/19 13:14 98 H 98 02/12/19 13:09 93 H 95/50 L 97 02/12/19 13:04 93 H 98 02/12/19 12:59 85 97 02/12/19 12:54 109 H 96/52 L 98 02/12/19 12:49 93 H 98 02/12/19 12:44 91 H 98 02/12/19 12:39 93 H 97/54 L 98 02/12/19 12:34 102 H 98 02/12/19 12:29 83 98 02/12/19 12:24 89 98/55 L 98 02/12/19 12:19 94 H 97 02/12/19 12:14 89 98 02/12/19 12:09 97 H 91/52 L 98 02/12/19 12:04 95 H 98 02/12/19 11:59 105 H 98 02/12/19 11:55 103 H 100/55 L 02/12/19 11:54 102 H 98 02/12/19 11:49 99 H 98 02/12/19 11:44 102 H 98 02/12/19 11:40 103 H 104/58 L 02/12/19 11:39 94 H 99 02/12/19 11:34 91 H 98 02/12/19 11:29 79 97 02/12/19 11:24 87 86/51 L 98 02/12/19 11:19 86 97 02/12/19 11:14 85 97 02/12/19 11:09 96 H 97 02/12/19 11:08 95 H 94/56 L 02/12/19 11:04 92 H 97 02/12/19 10:59 96 H 98 02/12/19 10:54 94 H 88/53 L 98 02/12/19 10:49 97 H 98 02/12/19 10:44 105 H 98 02/12/19 10:39 98 H 99/53 L 98 02/12/19 10:34 91 H 98 02/12/19 10:29 96 H 98 02/12/19 10:24 95 H 110/57 L 98 02/12/19 10:19 102 H 98 02/12/19 10:14 87 97 02/12/19 10:09 90 97/54 L 98 02/12/19 10:04 104 H 98 02/12/19 09:59 91 H 97 02/12/19 09:54 93 H 99/55 L 98 02/12/19 09:49 98 H 97 02/12/19 09:44 93 H 98 02/12/19 09:39 102 H 106/61 99 02/12/19 09:34 97 H 98 02/12/19 09:29 93 H 97 02/12/19 09:24 83 99 02/12/19 09:23 83 103/60 02/12/19 09:19 97 H 99 02/12/19 09:14 102 H 99 02/12/19 09:09 89 97/60 L 98 02/12/19 09:04 87 99 02/12/19 08:59 77 98 02/12/19 08:54 89 98/57 L 98 02/12/19 08:49 84 98 02/12/19 08:44 86 97 02/12/19 08:39 82 97/57 L 97 02/12/19 08:34 83 97 02/12/19 08:29 89 97 02/12/19 08:24 82 96/54 L 98 02/12/19 08:19 84 97 02/12/19 08:14 83 97 02/12/19 08:10 81 97/55 L 02/12/19 08:09 83 97 02/12/19 08:04 84 97 02/12/19 07:59 86 97 02/12/19 07:54 83 97 Notes Mental Status: alert / awake / arousable and participated in evaluation Nausea / Vomiting: adequately controlled Pain: adequately controlled Airway Patency, RR, SpO2: stable & adequate BP & HR: stable & adequate Hydration State: stable & adequate Neuraxial Anesthesia: was administered and sensory block resolved Anesthetic Complications: no major complications apparent and Pt Satisfied with anesthetic care Notes: Patient reports this morning that she has full resolution of the numbness and tingling in her left buttock since my exam last night. She has equal and appropriate strength in both lower extremities. She denies any sensation of weakness in her lower extremities. She has been able to get up and she has ambulated independently without difficulties. Epidural has resolved and she is ok to discharge home from an anesthetic perspective when the OB team feels it is appropriate.
--- NOTE | 2019-02-13 08:25 | Obstetrical Progress Note ---
Date of Service February 13, 2019 Subjective Patient did well overnight. States she has not really felt any contractions. Did have one episode where she had a "glob" of bloody mucus when she got up to go to the bathroom, but did not have any continued bleeding. She was just evaluated by anesthesiology, and residual effects of numbness have resolved. Patient is ambulating well. She would like to go home. I suggest cervix exam, she does not feel this is necessary since she is not binh and declines. I think this is reasonable, since she has not been binh. Will perform NST and give 2nd dose of steroids this AM and will discharge home. I have discussed s/s labor with patient, she is to return immediately if this occurs. She is to followup in office this week as scheduled. Results & Data Vital Signs (Past 12 Hours) Vital Signs Temp Pulse Resp BP 02/13/19 07:37 36.9 C 18 02/13/19 07:36 93 H 86/53 L 02/13/19 05:10 37.0 C 98 H 18 98/55 L 02/13/19 01:08 36.7 C 75 16 97/59 L 02/12/19 23:11 37.1 C 80 16 99/57 L 02/12/19 20:54 83 98/53 L 02/12/19 20:39 81 96/52 L 02/12/19 20:24 81 94/55 L
[2019-02-13] MEDS: BETAMETH SOD PHOS/ACETATE IA 6 MG/ML IM SCH (08:50)
--- NOTE | 2019-02-17 10:22 | Discharge Summary ---
Date of Service February 17, 2019 Discharge Data Consultations 02/12/19 00:45 Consult Anesthesiology Stat Hospital Course (1) : Patient was admitted for my partner with contractions. She had made cervical change with contractions, and was given an epidural. During continued observation, her contractions stopped and she made no further cervical change. Her epidural was removed, she was monitored overnight, and did not have further contractions. She was then discharged to home. Followup in office as scheduled.
== END 2019-02-13 08:55 | disposition home or self-care (01) | DRG 832 ==
LOC: OPB 22:33 → 4S1 22:34
DX: Z87.51 Personal history of pre-term labor; Z3A.35 35 weeks gestation of pregnancy; O23.43 Unspecified infection of urinary tract in pregnancy, third trimester; O09.33 Supervision of pregnancy with insufficient antenatal care, third trimester; F17.210 Nicotine dependence, cigarettes, uncomplicated; O60.03 Preterm labor without delivery, third trimester; O99.333 Smoking (tobacco) complicating pregnancy, third trimester

== ENCOUNTER 2019-03-10 02:29 | Inpatient (IN) ==
[2019-03-10] MEDS ORDERED: OXYTOCIN 30 UNITS/500 ML BAG IV PRN (03:37)
[2019-03-10 04:05] LABS: Hematocrit (blood only) 31.5 % (37-47); Hemoglobin 10.5 g/dL (12.0-16.0); Mean Corpuscular Hemoglobin 28.8 pg (25-34); Mean Corpuscular Volume 86.5 fL (80-100); Mean Platelet Volume 11.3 fL (7.4-10.4); Platelet Count 463 K/uL (130-400); RDW Coefficient of Variation 14.8 % (11.5-14.5); RDW Standard Deviation 47.3 fL (36.4-46.3); Red Blood Count 3.64 M/uL (4.2-5.4); White Blood Count 13.83 K/uL (4.8-10.8)
[2019-03-10 04:15] LABS: Mean Corpuscular Hgb Conc 33.3 g/dL (32-36)
[2019-03-10] MEDS: LACTATED RINGER'S 1,000 ML IV PRN ×2 (06:00→07:03)
[2019-03-10] MEDS ORDERED: BUPIVACAINE 0.25% 30 ML VIAL ONE (06:03)
[2019-03-10] MEDS ORDERED: ePHEDrine sulfate 50 MG/ML AMP ONE (06:04)
[2019-03-10] MEDS ORDERED: fentaNYL 2MCG/ML ROPIV 1.25MG/ML 100 ML BAG EPI ONE (06:04)
[2019-03-10] MEDS ORDERED: fentaNYL citrate 100 MCG/2 ML VIAL ONE (06:04)
--- NOTE | 2019-03-10 06:07 | History & Physical Report ---
Date of Service March 10, 2019 Assessment & Plan (1) Supervision of normal intrauterine in multigravida in third trimester: - FHT-ing Cat I - pain control per patient - will make Peds aware of suboxone use - Social Service consult after delivery - anticipate History of Present Illness Chief Complaint: Labor Primary Care Provider: NO PCP The patient is a 33-year-old 2 para 0-1-0-1 with an EDC of 16 March by second trimester ultrasound who was admitted at 39+ weeks gestational age in active labor. The patient states that her contractions woke her up and increased in intensity and she came to labor and delivery for evaluation. The patient has had a complicated obstetrical course. Her first visit was at 22 weeks gestational age when a dating ultrasound was performed. The patient's previous was a delivery at 32 weeks gestational age. That baby suffers from cerebral palsy. The patient was started on [place] injections because of the history of previous delivery. At 35 weeks gestational age she presented to labor and delivery at 4 cm dilatation and was felt to be in labor. However dilatation arrested at 4 cm after 18 hours of observation and the patient was discharged home. Her contractions increased in intensity the evening of 09 March and she presents in active labor. Her course is remarkable for Subutex 8 mg daily which she has been taking. The patient has also had a chronic urinary tract infection throughout the for E. coli. She has been treated with multiple different antibiotics and the infection has been unable to be cleared. Attempts to arrange a urology consult were difficult secondary to appointment availability for the patient. The patient had a minimal weight gain during this . Laboratory values for the show blood type of O+, antibody negative, rubella immune, hepatitis B negative, she had a negative cell free DNA screening, she had a -1-hour cola at 28 weeks, and a negative third trimester beta strep culture. Allergies Allergy/AdvReac Type Severity Reaction Status Date / Time No Known Drug Allergies Allergy Verified 03/09/19 11:47 Home Medications Home Medications Medication Instructions Recorded Confirmed Type buprenorphine HCl 8 mg SUBLINGUAL DAILY 03/10/19 03/10/19 History vit no.[id number] 1 tab PO DAILY 03/10/19 03/10/19 History [ Vitamin] Patient History Medical History History of labor History of migraine No meds History of thyroid disease In childhood; no issues currently History of varicella vaccination delivery labor at 26wks and delivered at 32wks [facility] - Surgical History History of appendectomy Family History Aunt Diabetes Grandfather (Maternal) Hypertension Mother Premature labor Grandmother (Maternal) Premature labor Social History Preferred Language: Ukrainian Communication Ability: Effective Dice Person Required: No Beliefs That Will Affect Care: None marital status: Single Current Living Situation: Family and Significant Other Current Living Situation Comment: Lives with fiance, son, and step-son Other Information That Helps Us Care for You: No Feels Safe at Home: Yes Safety Concerns: Feels Safe At This Time Smoking Status: Current every day smoker Tobacco Type: cigarettes ; Cigarettes Per Day: 5 ; Do You Dip or Chew Tobacco: No ; Second Hand Exposure: Yes ; Tobacco Cessation Education Requested by Patient: No Hx Alcohol Use: No Hx Substance Use: No Physical Exam Constitutional: WD/WN, vitals as above Respiratory: Auscultation: lungs clear to auscultation bilaterally Cardiovascular: RRR, no murmur, no edema Extremities: no calf tenderness Gastrointestinal (Abdomen): Gravid, vtx, (+) FHT's, EFW 6 lbs Genitourinary: Cervix: 6/100/0, AROM clear Results & Data Vital Signs (Past 12 Hours) Vital Signs Temp Pulse Resp BP 03/10/19 05:46 98.1 F 03/10/19 02:43 98.6 F 96 H 18 104/67 03/10/19 02:41 96 H 104/67
--- NOTE | 2019-03-10 07:01 | Anesthesiology Consultation ---
Date of Service March 10, 2019 History Height/Weight Height: 5 ft 5 in Weight: 65.317 kg Allergies Allergy/AdvReac Type Severity Reaction Status Date / Time No Known Drug Allergies Allergy Verified 03/09/19 11:47 Medications Home Medications Medication Instructions Recorded Confirmed Last Taken buprenorphine HCl 8 mg SUBLINGUAL DAILY 03/10/19 03/10/19 03/09/19 08:00 vit no.[id number] 1 tab PO DAILY 03/10/19 03/10/19 03/09/19 08:00 [ Vitamin] Active Medications Generic Name Dose Route Start Last Admin Trade Name Freq PRN Reason Stop Dose Admin Lactated Ringer's 1,000 mls @ 125 mls/hr 03/10/19 03:37 03/10/19 06:00 Lr IV 03/12/19 03:36 999 mls/hr .Q8H PRN Administration L&D Protocol Protocol Past Medical History Medical History History of labor History of migraine No meds History of thyroid disease In childhood; no issues currently History of varicella vaccination delivery labor at 26wks and delivered at 32wks [facility] [place] [facility] [place] Past Family History Family History Aunt Diabetes Grandfather (Maternal) Hypertension Mother Premature labor Grandmother (Maternal) Premature labor Past Surgical History Surgical History History of appendectomy Social History Smoking Status: Current every day smoker tobacco type: cigarettes Smoking cigarettes per day: 5 Do You Dip or Chew Tobacco: No Hx Alcohol Use: No Hx Substance Use: No substance use type: does not use Substance Use Type Other:: Patient on subutex for the past year; managed by Dr. Bird in [facility] Physical Exam Vital Signs Last Vital Signs Temp 36.7 C 03/10/19 05:46 Pulse 85 03/10/19 06:58 Resp 18 03/10/19 02:43 BP 118/55 L 03/10/19 06:58 Pulse Ox 100 03/10/19 06:57 Testing Laboratory Results 03/10/19 03:52
--- NOTE | 2019-03-10 07:03 | Anesthesiology Consultation ---
Date of Service March 10, 2019 Assessment & Plan (1) Encounter for pre-operative examination: Chart Review Chart Review: Patient NOT seen in Pre Admission Testing and Acceptable Risk for Labor Epidural Consults Requested none History Height/Weight Height: 5 ft 5 in Weight: 65.317 kg Allergies Allergy/AdvReac Type Severity Reaction Status Date / Time No Known Drug Allergies Allergy Verified 03/09/19 11:47 Medications Home Medications Medication Instructions Recorded Confirmed Last Taken buprenorphine HCl 8 mg SUBLINGUAL DAILY 03/10/19 03/10/19 03/09/19 08:00 vit no.[id number] 1 tab PO DAILY 03/10/19 03/10/19 03/09/19 08:00 [ Vitamin] Active Medications Generic Name Dose Route Start Last Admin Trade Name Freq PRN Reason Stop Dose Admin Lactated Ringer's 1,000 mls @ 125 mls/hr 03/10/19 03:37 03/10/19 06:00 Lr IV 03/12/19 03:36 999 mls/hr .Q8H PRN Administration L&D Protocol Protocol Past Medical History Medical History History of labor History of migraine No meds History of thyroid disease In childhood; no issues currently History of varicella vaccination delivery labor at 26wks and delivered at 32wks [facility] [place] - Past Family History Family History Aunt Diabetes Grandfather (Maternal) Hypertension Mother Premature labor Grandmother (Maternal) Premature labor Past Surgical History Surgical History History of appendectomy Social History Smoking Status: Current every day smoker tobacco type: cigarettes Smoking cigarettes per day: 5 Do You Dip or Chew Tobacco: No Hx Alcohol Use: No Hx Substance Use: No substance use type: does not use Substance Use Type Other:: Patient on subutex for the past year; managed by Dr. Bird in [facility] Physical Exam Vital Signs Last Vital Signs Temp 36.7 C 03/10/19 05:46 Pulse 84 03/10/19 06:59 Resp 18 03/10/19 02:43 BP 94/55 L 03/10/19 06:59 Pulse Ox 100 03/10/19 06:57 Testing Laboratory Results 03/10/19 03:52
[2019-03-10] MEDS ORDERED: NALOXONE HCL 0.4 MG/1 ML VIAL/CARP IV PRN (07:06)
[2019-03-10] MEDS ORDERED: fentaNYL 2MCG/ML ROPIV 1.25MG/ML 100 ML BAG EPI PRN (07:06)
[2019-03-10] MEDS ORDERED: ePHEDrine sulfate 50 MG/ML AMP IV PRN (07:06)
[2019-03-10] MEDS ORDERED: ONDANSETRON INJ 2 MG/ML 2 ML VIAL IV PRN (07:06)
[2019-03-10] MEDS ORDERED: NALOXONE HCL 1 MG in SODIUM CHLORIDE 0.9% 1000ML 1,000 ML IV PRN (07:06)
[2019-03-10] MEDS ORDERED: DiphenhydrAMINE HCL 50 MG/ML VIAL IV PRN (07:06)
[2019-03-10] MEDS ORDERED: NALBUPHINE HCL INJ 10 MG/ML AMP IV PRN (07:06)
[2019-03-10] MEDS: OXYTOCIN 30 UNITS/500 ML BAG IV PRN ×2 (08:30→11:10)
--- NOTE | 2019-03-10 08:41 | Delivery Summary ---
Vaginal Delivery Summary Date of Service March 10, 2019 Findings: Viable male with Apgars of 8 and 9 baby delivered over a midlin e episiotomy, cord gases cord blood samples obtained. Placenta delivered spontaneously. Episiotomy repaired with 4-0 Vicryl in routine fashion. Estimated blood loss 300 cc. Sponge needle count was correct The patient is a 33-year-old 2 para 0-1-0-1 with an EDC of 16 March by second trimester ultrasound who was admitted at 39+ weeks gestational age in active labor. The patient states that her contractions woke her up and increased in intensity and she came to labor and delivery for evaluation. The patient has had a complicated obstetrical course. Her first visit was at 22 weeks gestational age when a dating ultrasound was performed. The patient's previous was a delivery at 32 weeks gestational age. That baby suffers from cerebral palsy. The patient was started on [place] injections because of the history of previous delivery. At 35 weeks gestational age she presented to labor and delivery at 4 cm dilatation and was felt to be in labor. However dilatation arrested at 4 cm after 18 hours of observation and the patient was discharged home. Her contractions increased in intensity the evening of 09 March and she presents in active labor. The tracing was category 1 on admission. Patient requested and received an epidural per anesthesia. Patient progressed to full dilatation and began her second stage. She pushed for approximately half an hour delivering the viable male cord was clamped and cut cord gases cord blood samples were obtained placenta was delivered spontaneously inspection of the perineum showed a midline laceration excuse me a midline episiotomy. Episiotomy was repaired with 4-0 Vicryl in routine fashion estimated blood loss was 300 cc sponge needle count was correct. Her course is remarkable for Subutex 8 mg daily which she has been taking. The patient has also had a chronic urinary tract infection throughout the for E. coli. She has been treated with multiple different antibiotics and the infection has been unable to be cleared. Attempts to arrange a urology consult were difficult secondary to appointment availability for the patient. The patient had a minimal weight gain during this . Laboratory values for the show blood type of O+, antibody negative, rubella immune, hepatitis B negative, she had a negative cell free DNA screening, she had a -1-hour cola at 28 weeks, and a negative third trimester beta strep culture.
[2019-03-10] MEDS ORDERED: DIPHTHERIA/TETANUS/PERTUSSIS 0.5 ML SYR/VIAL IM ONE (09:02)
[2019-03-10] MEDS ORDERED: SUPERCREAM 0.870% 15 GM JAR EXT PRN (09:02)
[2019-03-10] MEDS ORDERED: BENZOCAINE 20% AER SPR 82.5 GM CAN EXT PRN (09:02)
[2019-03-10] MEDS ORDERED: HYDROCORTISONE ACETATE 25 MG SUPP PR PRN (09:02)
[2019-03-10 09:03] LABS: Base Excess Cord Arterial Bld -6.2 mEq/L (-9-1.8); CO2 Cord Arterial Blood 53 mmHg (39.1-73.5); HCO3 Cord Arterial Blood 22 mmol/L (19.7-28.5); pH Cord Arterial Blood 7.23 (7.1-7.38)
--- NOTE | 2019-03-10 09:04 | Anesthesia Procedure Note ---
Date of Service March 10, 2019 Anesthesia Post Epidural Note Vital Signs Vital Signs: Temp Pulse Resp BP Pulse Ox 36.8 C 104 H 20 101/61 100 03/10/19 07:30 03/10/19 08:55 03/10/19 07:30 03/10/19 08:55 03/10/19 08:22 Pain Intensity Bilateral Abdomen: Pain Intensity: 5 Notes Mental Status: alert / awake / arousable and participated in evaluation Patient Amnestic to Procedure: No Nausea / Vomiting: adequately controlled Pain: adequately controlled Airway Patency, RR, SpO2: stable & adequate BP & HR: stable & adequate Hydration State: stable & adequate Neuraxial Anesthesia: was administered and sensory block is resolving Anesthetic Complications: no major complications apparent and Pt Satisfied with anesthetic care Epidural: Removed without complications and With tip intact
[2019-03-10 09:08] LABS: Base Excess Cord Venous Blood -3.9 mEq/L (-7.7-1.9); Cord Venous Blood HCO3 22 mmol/L (18.4-26.8); Cord Venous Blood PCO2 42 mmHg (30.4-57.2); Cord Venous Blood PO2 28 mmHg (14.1-43.3); Cord Venous Blood pH 7.33 (7.20-7.44)
[2019-03-10] MEDS: BUPRENORPHINE HCL 8 MG SUBL SL SCH (11:27)
[2019-03-10] MEDS: IBUPROFEN 600 MG TAB PO PRN ×2 (11:29→16:15)
[2019-03-10] MEDS ORDERED: NICOTINE 14 MG/24 HR PATCH TD SCH (12:30)
[2019-03-10] MEDS: DOCUSATE SODIUM 100 MG CAP PO SCH (23:17)
[2019-03-11] MEDS: ACETAMINOPHEN 325 MG TAB PO PRN ×2 (01:29→13:10)
[2019-03-11 06:29] LABS: Hematocrit (blood only) 24.6 % (37-47); Hemoglobin 8.3 g/dL (12.0-16.0); Mean Corpuscular Hemoglobin 29.1 pg (25-34); Mean Corpuscular Hgb Conc 33.7 g/dL (32-36); Mean Corpuscular Volume 86.3 fL (80-100); Platelet Count 367 K/uL (130-400); RDW Coefficient of Variation 14.9 % (11.5-14.5); RDW Standard Deviation 46.8 fL (36.4-46.3); Red Blood Count 2.85 M/uL (4.2-5.4); White Blood Count 19.93 K/uL (4.8-10.8)
--- NOTE | 2019-03-11 06:49 | Obstetrical Progress Note ---
Date of Service <Nikole Noel MD - Last Filed: 03/11/19 06:53> March 11, 2019 Assessment & Plan <Nikole Noel MD - Last Filed: 03/11/19 06:53> (1) Status post vaginal delivery: Nakita is a 33 yo on PPD 1 after at term - GBS -, Blood Type O+, Rubella immune -Vitals reviewed and WNL (Tmax 37.2_) -Hemoglobin reviewed: 10.5 on admission down to 8.3 today. We will add oral iron supplement -on subutex -patient is doing clinically well continue routine post care - After discharge will have [address] Rooney. Subjective <Nikole Noel MD - Last Filed: 03/11/19 06:53> Ambulation: ambulating normally Voiding: no voiding problems Passing Gas:: Yes Diet Tolerance:: regular diet Lochia:: Small Feeding Type:: breast feeding Current Pain Level(1-10): 3 examined at bedside Constitutional: no fever, no chills and no sweats Eyes: no worsening vision Respiratory: no cough and no dyspnea Cardiovascular: no chest pain, no palpitations, no edema and no calf pain Breast: no breast pain Gastrointestinal: no nausea and no vomiting Genitourinary (female): no dysuria and no urinary frequency Neurologic: no headache(s) Physical Exam <Nikole Noel MD - Last Filed: 03/11/19 06:53> Constitutional WD/WN, vitals as above no acute distress Respiratory normal respiratory effort, lungs clear to auscultation does not use accessory muscles Auscultation: no crackles, no rales, no rhonchi, no wheezes and no pleural rub Cardiovascular Rate/Rhythm: regular rate and regular rhythm Heart Sounds: normal S1 and normal S2; no gallop, no murmur and no cardiac rub Extremities: no calf tenderness and no pedal edema Gastrointestinal (Abdomen) Inspection/Auscultation: normal bowel sounds; abdomen not distended Percussion/Palpation: + abdomen tender and abdomen soft Genitourinary Uterus: fundus firm, palpable 1 cm below the uterus Results & Data <Nikole Noel MD - Last Filed: 03/11/19 06:53> Vital Signs (Past 12 Hours) Vital Signs Temp Pulse Resp BP Pulse Ox 03/11/19 03:15 37.3 C 98 H 16 89/50 L 97 03/10/19 23:10 37.2 C 118 H 20 107/71 98 03/10/19 19:40 36.9 C 96 H 16 91/56 L 98 <Hue Garcia MD, FACOG - Last Filed: 03/11/19 08:11> Co-Signing Physician Notes Resident Physician Supervision Note: I interviewed and examined the patient. Discussed with Dr. Noel and agree with findings and plan as documented in the note. Any exceptions or clarifications are listed here: [None] Documented By: Hue Garcia MD, FACOG
[2019-03-11] MEDS: BUPRENORPHINE HCL 8 MG SUBL SL SCH (10:04)
[2019-03-11] MEDS: DOCUSATE SODIUM 100 MG CAP PO SCH ×2 (10:04→21:02)
[2019-03-11] MEDS: PRENATAL VITAMIN 1 TAB PO SCH (10:04)
[2019-03-11] MEDS: FERROUS SULFATE 325 MG TAB PO SCH (10:04)
[2019-03-11] MEDS: NICOTINE 21 MG/24 HR TDSY TD SCH (14:23)
[2019-03-11] MEDS ORDERED: BISACODYL 5 MG TABEC PO SCH (20:00)
[2019-03-11] MEDS ORDERED: LACTATED RINGER'S 1,000 ML IV ONE (21:28)
[2019-03-12] MEDS: NICOTINE 21 MG/24 HR TDSY TD SCH (01:38)
--- NOTE | 2019-03-12 06:51 | Obstetrical Progress Note ---
Date of Service <Nikole Noel MD - Last Filed: 03/12/19 07:08> March 12, 2019 Assessment & Plan <Nikole Noel MD - Last Filed: 03/12/19 07:08> (1) Status post vaginal delivery: Nakita is a 33 yo on PPD 2 after at term - GBS -, Blood Type O+, Rubella immune -Vitals reviewed: temp reached 38.2 overnight; fever resolved with 1 liter bolus of LR -temp now WNL at 36.6; HR at 112 -on subutex -patient is doing clinically well Discharge instructions reviewed; d/c patient to [facility] [place] - After discharge will have [address] Rooney. Subjective <Nikole Noel MD - Last Filed: 03/12/19 07:08> Ambulation: ambulating normally Voiding: no voiding problems Passing Gas:: Yes Diet Tolerance:: regular diet Lochia:: Small Current Pain Level(1-10): 2 examined at bedside Constitutional: no fever, no chills and no sweats Eyes: no worsening vision Respiratory: no cough and no dyspnea Cardiovascular: no chest pain Breast: no breast pain Gastrointestinal: no abdominal pain, no nausea and no vomiting Genitourinary (female): no dysuria, no difficulty urinating, no urinary frequency and no urinary urgency Neurologic: no headache(s) Physical Exam <Nikole Noel MD - Last Filed: 03/12/19 07:08> Constitutional WD/WN, vitals as above + diaphoretic (shirt was soaked with sweat on exam; was covered with warm blanket); no acute distress Respiratory normal respiratory effort, lungs clear to auscultation does not use accessory muscles Auscultation: no crackles, no rales, no rhonchi, no wheezes and no pleural rub Cardiovascular Rate/Rhythm: regular rate and regular rhythm Heart Sounds: normal S1 and normal S2; no gallop, no murmur and no cardiac rub Extremities: no calf tenderness and no pedal edema Gastrointestinal (Abdomen) Inspection/Auscultation: normal bowel sounds; abdomen not distended Percussion/Palpation: + abdomen tender and abdomen soft Genitourinary OB Exam Abdomen: + fundal height Fundus: + firm and + relation to umbilicus (1 cm below) Results & Data <Nikole Noel MD - Last Filed: 03/12/19 07:08> Vital Signs (Past 12 Hours) Vital Signs Temp Pulse Resp BP Pulse Ox 03/12/19 05:06 36.6 C 03/12/19 04:25 37.8 C H 112 H 20 93/63 L 03/11/19 23:15 37.2 C 112 H 18 99/65 L 97 03/11/19 21:00 38.0 C H 03/11/19 19:45 38.2 C H 111 H 20 108/71 97 <Micheal Young MD, FACOG - Last Filed: 03/12/19 07:15> Co-Signing Physician Notes Resident Physician Supervision Note: I interviewed and examined the patient. Discussed with Dr. Noel and agree with findings and plan as documented in the note. Any exceptions or clarifications are listed here: [None] Documented By: Micheal Young MD, FACOG
[2019-03-12] MEDS: DOCUSATE SODIUM 100 MG CAP PO SCH ×2 (08:54→20:52)
[2019-03-12] MEDS: PRENATAL VITAMIN 1 TAB PO SCH (08:55)
[2019-03-12] MEDS: BUPRENORPHINE HCL 8 MG SUBL SL SCH (08:55)
[2019-03-12] MEDS: FERROUS SULFATE 325 MG TAB PO SCH (08:55)
[2019-03-12] MEDS: IBUPROFEN 600 MG TAB PO PRN (17:09)
[2019-03-13] MEDS: DOCUSATE SODIUM 100 MG CAP PO SCH (08:11)
[2019-03-13] MEDS: PRENATAL VITAMIN 1 TAB PO SCH (08:11)
[2019-03-13] MEDS: FERROUS SULFATE 325 MG TAB PO SCH (08:41)
[2019-03-13] MEDS: BUPRENORPHINE HCL 8 MG SUBL SL SCH (08:41)
[2019-03-13] MEDS: NICOTINE 21 MG/24 HR TDSY TD SCH (08:42)
--- NOTE | 2019-03-13 09:26 | Obstetrical Progress Note ---
Date of Service March 13, 2019 Assessment & Plan (1) Status post vaginal delivery: Post day 3. Doing well. Afebrile for 24 hours. No S/S of infection. Stable for discharge today. Subjective Ambulation: ambulating normally Voiding: no voiding problems Diet Tolerance:: regular diet Lochia:: Moderate Feeding Type:: breast feeding Current Pain Level(1-10): 2 Patient doing well. Denied any symptoms of infection. Physical Exam Gastrointestinal (Abdomen) Percussion/Palpation: abdomen soft; abdomen nontender, no guarding and abdomen not rigid Genitourinary OB Exam Abdomen: + fundal height Fundus: + firm and + relation to umbilicus (Below); not tender and not boggy Results & Data Vital Signs (Past 12 Hours) Vital Signs Temp Pulse Resp BP Pulse Ox 03/13/19 00:35 36.6 C 87 20 97/64 L 99
== END 2019-03-13 14:10 | disposition home or self-care (01) | DRG 807 ==
LOC: OPB 02:29 → 4S1 02:33 → 4N 16:09 → 4S2 03-12 19:10